=== PATIENT | male | born 1935 | race Caucasian/White ===

== ENCOUNTER 2023-08-25 11:00 | Inpatient (IN) | payer MEDICARE ==
[~2023-08-25] VITALS: Ht 170.2 cm; Wt 65.8 kg
[2023-08-25] MEDS ORDERED: ACET-868 PO ×2 (11:38)
[2023-08-25] MEDS ORDERED: HEPA500039 SQ (11:38)
[2023-08-25] MEDS ORDERED: POLY17PO4 PO (11:38)
[2023-08-25] MEDS ORDERED: AMLO10TA4 PO (11:38)
[2023-08-25] MEDS ORDERED: TRAM50TA2 PO (11:38)
[2023-08-25] MEDS ORDERED: DOCU100C36 PO (11:38)
[2023-08-25] MEDS ORDERED: MAGN400O6 PO (11:38)
[2023-08-25] MEDS ORDERED: ASCO-340 PO (11:38)
[2023-08-25] MEDS ORDERED: ZINC57OI4 TP (11:38)
[2023-08-25] MEDS ORDERED: ZINC220C6 PO (11:38)
[2023-08-25] MEDS ORDERED: MULT-213 PO (11:38)
[2023-08-25] MEDS ORDERED: HYDR-4076 PO (11:38)
[2023-08-25] MEDS ORDERED: CRAN3875 PO (11:38)
[2023-08-25] MEDS ORDERED: FAMO20TA80 GT (11:38)
[2023-08-25] MEDS ORDERED: POTA20TA83 PO (11:38)
[2023-08-25] MEDS ORDERED: MELA3TAB41 PO (11:38)
[2023-08-25] MEDS ORDERED: CLON0.1T PO (11:38)
[2023-08-25] MEDS: IV NS 0.9% 1,000 ML BAG IV ONE ×2 (11:42→11:46)
[2023-08-25 12:14] LABS: BASOPHILS % (AUTO) 0.4 % (0.0-2.0); HEMATOCRIT 35 % (39-51); HEMOGLOBIN 11.3 g/dL (13.5-17.5); LYMPHOCYTES # (AUTO) 0.4 K/uL (0.8-4.8); MEAN CORPUSCULAR HEMOGLOBIN 29 PG (26.0-33.0); MEAN CORPUSCULAR HGB CONC 33 g/dl (31.0-36.0); MEAN CORPUSCULAR VOLUME 89 fL (80-96); MONOCYTES # (AUTO) 0.4 K/uL (0.1-1.30); MONOCYTES % (AUTO) 5.2 % (2.0-12.0); NEUTROPHILS # (AUTO) 6.5 K/uL (1.8-8.9); NEUTROPHILS % (AUTO) 89.4 % (43.0-81.0); PLATELET COUNT (AUTO) 389 K/uL (150-450); RED CELL DISTRIBUTION WIDTH 18.4 % (11.5-15.0); WHITE BLOOD COUNT (AUTO) 7.3 K/uL (4.3-11.0)
[2023-08-25 12:28] LABS: INR 1.1 (0.91-1.10); PARTIAL THROMBOPLASTIN TIME 31.2 SEC (24.3-34.3); PROTHROMBIN TIME 11.6 SECS (9.2-11.1)
[2023-08-25 12:33] LABS: ALANINE AMINOTRANSFERASE 16 U/L (12-78); ALBUMIN 2.4 g/dL (3.4-5.0); ALKALINE PHOSPHATASE 64 U/L (46-116); ASPARTATE AMINOTRANSFERASE 12 U/L (15-37); BILIRUBIN,DIRECT 0.1 mg/dL (0.0-0.2); BILIRUBIN,TOTAL 0.4 mg/dL (0.2-1.0); CALCIUM, SERUM 10.4 mg/dL (8.5-10.1); CARBON DIOXIDE 18 mmol/L (21-32); CHLORIDE 103 mmol/L (98-107); CREATININE 1.9 mg/dL (0.6-1.3); GLUCOSE 150 mg/dL (74-106); LIPASE 11 U/L (16-77); POTASSIUM 3.7 mmol/L (3.5-5.1); SODIUM SERUM 141 mmol/L (136-145); TOTAL PROTEIN, SERUM 7.2 g/dL (6.4-8.2); UREA NITROGEN, BLOOD 62 mg/dL (7-18)
[2023-08-25 12:58] LABS: LACTIC ACID 3.3 mmol/L (0.4-2.0)
[2023-08-25] MEDS ORDERED: Z GUARD REMEDY 4 OZ OINT TP PRN (17:00)
[2023-08-25] MEDS ORDERED: ACETAMINOPHEN 325 MG TABLET PO PRN (17:00)
[2023-08-25] MEDS ORDERED: ONDANSETRON HCL/PF 4 MG/2 ML VIAL IVP PRN (17:00)
[2023-08-25] MEDS ORDERED: LACTULOSE 10 G/15 ML UDC (PYXIS) PO PRN (17:00)
[2023-08-25] MEDS ORDERED: MAGNESIUM HYDROXIDE 30 ML UDC PO PRN (17:00)
[2023-08-25] MEDS ORDERED: IV D5/0.45 NACL 1,000 ML IV PRN (17:00)
[2023-08-25] MEDS: IV LR 1000 ML 1,000 ML IV PRN (17:23)
[2023-08-25] MEDS: DOCUSATE SODIUM 100 MG CAPSULE PO SCH (17:24)
[2023-08-25] MEDS: NA PHOS,M-B/NA PHOS,DI-BA 1 EA ENEMA RC ONE (17:24)
[2023-08-25 20:00] VITALS: BP 94/62; TEMP 97.9; O2SAT 94
[2023-08-25] MEDS ORDERED: SENNOSIDES 8.6 MG TABLET PO PRN (20:00)
[2023-08-25 20:53] LABS: HEMOGLOBIN 9.8 g/dL (13.5-17.5)
[2023-08-25] MEDS: PANTOPRAZOLE 40 MG VIAL IV SCH (21:20)
[2023-08-25] MEDS: SENNOSIDES 8.6 MG TABLET PO SCH (21:20)
[2023-08-25] MEDS: POLYETHYLENE GLYCOL 3350 17 GM POWD.PACK PO SCH (21:21)
[2023-08-25 21:37] LABS: APPEARANCE,URINE CLOUDY (CLEAR); BILIRUBIN,URINE NEGATIVE (NEGATIVE); BLOOD, URINE 1+ Ery/uL (NEGATIVE); COLOR,URINE YELLOW (YELLOW); KETONES,URINE NEGATIVE (NEGATIVE); LEUKOCYTE ESTERASE ,URINE 3+ (NEGATIVE); NITRITE, URINE NEGATIVE (NEGATIVE); PH,URINE 7.5 (5.0-8.0); PROTEIN,URINE 2+ mg/dl (NEGATIVE); UGLUCOSE NEGATIVE (NEGATIVE); UROBILINOGEN,URINE 0.2 EU/dL (0.2)
[2023-08-25 22:33] LABS: ADD URINE CULTURE YES; BACTERIA,URINE 3+ /HPF (None Seen); RBC,URINE 21-50 /HPF (0-2); WBC,URINE 51-80 /HPF (0-3)
[2023-08-25 22:34] LABS: SQUAMOUS EPITHELIAL CELL,UR 0-2 /HPF (None Seen); URINE AMORPHOUS PHOSPHATES Many /HPF (None Seen)
[2023-08-25 23:59] LABS: OCCULT BLOOD STOOL NEGATIVE (NEGATIVE)
[2023-08-26] VITALS: BP 117/61; TEMP 98.1; O2SAT 95
[2023-08-26 04:51] VITALS: BP 121/78; TEMP 98.6; O2SAT 100
[2023-08-26 06:58] LABS: HEMATOCRIT 30 % (39-51); HEMOGLOBIN 9.7 g/dL (13.5-17.5); LYMPHOCYTES # (AUTO) 0.9 K/uL (0.8-4.8); LYMPHOCYTES % (AUTO) 8.8 % (20.0-44.0); MEAN CORPUSCULAR HEMOGLOBIN 29 PG (26.0-33.0); MEAN CORPUSCULAR HGB CONC 33 g/dl (31.0-36.0); MEAN CORPUSCULAR VOLUME 90 fL (80-96); MONOCYTES % (AUTO) 9.3 % (2.0-12.0); NEUTROPHILS # (AUTO) 8.7 K/uL (1.8-8.9); NEUTROPHILS % (AUTO) 81.9 % (43.0-81.0); PLATELET COUNT (AUTO) 298 K/uL (150-450); RED CELL DISTRIBUTION WIDTH 18.4 % (11.5-15.0); WHITE BLOOD COUNT (AUTO) 10.6 K/uL (4.3-11.0)
[2023-08-26 07:41] LABS: IRON, SERUM 10 ug/dl (50-175); TOTAL IRON BINDING CAPACITY 146 ug/dl (250-450)
[2023-08-26 07:42] LABS: CALCIUM, SERUM 9.6 mg/dL (8.5-10.1); CARBON DIOXIDE 14 mmol/L (21-32); CHLORIDE 107 mmol/L (98-107); CREATININE 1.9 mg/dL (0.6-1.3); GLUCOSE 130 mg/dL (74-106); MAGNESIUM 2.4 mg/dL (1.8-2.4); PHOSPHORUS 5.7 mg/dL (2.5-4.9); POTASSIUM 3.6 mmol/L (3.5-5.1); SODIUM SERUM 140 mmol/L (136-145); UREA NITROGEN, BLOOD 71 mg/dL (7-18)
[2023-08-26 07:51] LABS: FERRITIN 488 ng/mL (8-388); THYROID STIMULATING HORMONE 1.052 uIU/mL (0.358-3.74)
[2023-08-26 08:00] VITALS: BP 124/69; TEMP 97.5; O2SAT 98
[2023-08-26] MEDS: IV 1/2NS 1000 ML 1,000 ML IV PRN (08:31)
[2023-08-26] MEDS: ZINC SULFATE 220 MG CAPSULE PO SCH (08:31)
[2023-08-26] MEDS: MULTIVIT W/MINERALS 1 TAB TABLET PO SCH (08:31)
[2023-08-26] MEDS: CEFTRIAXONE 1 G in IV D5W 50 ML IV SCH (09:09)
[2023-08-26 12:00] VITALS: BP 130/75; TEMP 97.8; O2SAT 98
[2023-08-26 16:00] VITALS: BP 119/75; TEMP 98.1; O2SAT 95
[2023-08-26 20:00] VITALS: BP 141/76; TEMP 97.9; O2SAT 95
[2023-08-27] VITALS: BP 127/78; TEMP 98.1; O2SAT 95
[2023-08-27 04:00] VITALS: BP 105/54; TEMP 97.8; O2SAT 95
[2023-08-27 07:19] LABS: BASOPHILS % (AUTO) 0.2 % (0.0-2.0); EOSINOPHILS % (AUTO) 0.1 % (0.0-6.0); HEMATOCRIT 33 % (39-51); HEMOGLOBIN 10.5 g/dL (13.5-17.5); LYMPHOCYTES # (AUTO) 0.3 K/uL (0.8-4.8); LYMPHOCYTES % (AUTO) 6.3 % (20.0-44.0); MEAN CORPUSCULAR HEMOGLOBIN 29 PG (26.0-33.0); MEAN CORPUSCULAR HGB CONC 32 g/dl (31.0-36.0); MEAN CORPUSCULAR VOLUME 91 fL (80-96); MONOCYTES # (AUTO) 0.3 K/uL (0.1-1.30); MONOCYTES % (AUTO) 5.2 % (2.0-12.0); NEUTROPHILS # (AUTO) 4.3 K/uL (1.8-8.9); NEUTROPHILS % (AUTO) 88.2 % (43.0-81.0); PLATELET COUNT (AUTO) 356 K/uL (150-450); RED BLOOD CELL COUNT(AUTO) 3.61 MIL/uL (4.5-6.0); RED CELL DISTRIBUTION WIDTH 18.5 % (11.5-15.0); WHITE BLOOD COUNT (AUTO) 4.9 K/uL (4.3-11.0)
[2023-08-27 08:00] VITALS: BP 102/87; TEMP 98.1; O2SAT 92
[2023-08-27 09:07] LABS: CALCIUM, SERUM 9.6 mg/dL (8.5-10.1); CARBON DIOXIDE 11 mmol/L (21-32); CHLORIDE 108 mmol/L (98-107); CREATININE 2.2 mg/dL (0.6-1.3); GLUCOSE 123 mg/dL (74-106); MAGNESIUM 2.3 mg/dL (1.8-2.4); PHOSPHORUS 4.7 mg/dL (2.5-4.9); POTASSIUM 4.2 mmol/L (3.5-5.1); SODIUM SERUM 140 mmol/L (136-145)
[2023-08-27 09:11] LABS: UREA NITROGEN, BLOOD 83 mg/dL (7-18)
[2023-08-27 15:53] VITALS: BP 110/53; TEMP 97.9; O2SAT 94
[2023-08-27 20:00] VITALS: BP 104/61; TEMP 98.8; O2SAT 94
[2023-08-27] MEDS: MUPIROCIN OINT 2% 22 GM TUBE NS SCH (22:01)
[2023-08-27 23:56] VITALS: BP 110/60; TEMP 98.8; O2SAT 94
[2023-08-28 04:00] VITALS: BP 103/57; TEMP 98.2; O2SAT 95
[2023-08-28 08:42] VITALS: BP 119/65; TEMP 98.1; O2SAT 95
[2023-08-28] MEDS ORDERED: PANT40TA49 PO (09:43)
[2023-08-28 11:04] LABS: ALANINE AMINOTRANSFERASE 12 U/L (12-78); ALBUMIN 1.8 g/dL (3.4-5.0); ALKALINE PHOSPHATASE 50 U/L (46-116); ASPARTATE AMINOTRANSFERASE 15 U/L (15-37); BILIRUBIN,TOTAL 0.3 mg/dL (0.2-1.0); CALCIUM, SERUM 9.1 mg/dL (8.5-10.1); CARBON DIOXIDE 16 mmol/L (21-32); CHLORIDE 113 mmol/L (98-107); CREATININE 1.8 mg/dL (0.6-1.3); GLUCOSE 80 mg/dL (74-106); MAGNESIUM 2.3 mg/dL (1.8-2.4); PHOSPHORUS 4.2 mg/dL (2.5-4.9); POTASSIUM 3.1 mmol/L (3.5-5.1); SODIUM SERUM 144 mmol/L (136-145); TOTAL PROTEIN, SERUM 5.7 g/dL (6.4-8.2); UREA NITROGEN, BLOOD 72 mg/dL (7-18)
[2023-08-28 11:40] LABS: BASOPHILS % (AUTO) 0.2 % (0.0-2.0); EOSINOPHILS % (AUTO) 0.4 % (0.0-6.0); HEMATOCRIT 26 % (39-51); HEMOGLOBIN 8.6 g/dL (13.5-17.5); LYMPHOCYTES # (AUTO) 0.7 K/uL (0.8-4.8); LYMPHOCYTES % (AUTO) 7.6 % (20.0-44.0); MEAN CORPUSCULAR HEMOGLOBIN 30 PG (26.0-33.0); MEAN CORPUSCULAR HGB CONC 33 g/dl (31.0-36.0); MEAN CORPUSCULAR VOLUME 90 fL (80-96); MONOCYTES # (AUTO) 0.6 K/uL (0.1-1.30); MONOCYTES % (AUTO) 7.2 % (2.0-12.0); NEUTROPHILS # (AUTO) 7.5 K/uL (1.8-8.9); NEUTROPHILS % (AUTO) 84.6 % (43.0-81.0); PLATELET COUNT (AUTO) 257 K/uL (150-450); RED CELL DISTRIBUTION WIDTH 18.6 % (11.5-15.0); WHITE BLOOD COUNT (AUTO) 8.9 K/uL (4.3-11.0)
[2023-08-28] MEDS: LIDOCAINE 1%-EPI 1:100,000 20 ML VIAL TP ONE (14:00)
[2023-08-28] MEDS ORDERED: SILVER NITRATE APPLICATOR 1 EA BOX TP SCH (14:00)
[2023-08-28 16:49] VITALS: BP 111/69; TEMP 98.2; O2SAT 94
[2023-08-28] MEDS: PANTOPRAZOLE 40 MG/PACK PACK PO SCH (21:47)
[2023-08-29] VITALS: BP 112/59; TEMP 98.5; O2SAT 94
[2023-08-29 04:50] VITALS: BP 117/61; TEMP 98.2; O2SAT 95
[2023-08-29 06:51] LABS: EOSINOPHILS # (AUTO) 0.2 K/uL (0.0-0.7); EOSINOPHILS % (AUTO) 2.6 % (0.0-6.0); HEMATOCRIT 25 % (39-51); HEMOGLOBIN 8.2 g/dL (13.5-17.5); LYMPHOCYTES # (AUTO) 0.8 K/uL (0.8-4.8); LYMPHOCYTES % (AUTO) 9.2 % (20.0-44.0); MEAN CORPUSCULAR HEMOGLOBIN 29 PG (26.0-33.0); MEAN CORPUSCULAR HGB CONC 33 g/dl (31.0-36.0); MEAN CORPUSCULAR VOLUME 89 fL (80-96); MONOCYTES # (AUTO) 0.8 K/uL (0.1-1.30); NEUTROPHILS # (AUTO) 6.7 K/uL (1.8-8.9); NEUTROPHILS % (AUTO) 79.2 % (43.0-81.0); PLATELET COUNT (AUTO) 248 K/uL (150-450); RED BLOOD CELL COUNT(AUTO) 2.83 MIL/uL (4.5-6.0); RED CELL DISTRIBUTION WIDTH 18.5 % (11.5-15.0); WHITE BLOOD COUNT (AUTO) 8.5 K/uL (4.3-11.0)
[2023-08-29 07:00] VITALS: BP 135/54; TEMP 98.6; O2SAT 98
[2023-08-29 07:35] LABS: ALANINE AMINOTRANSFERASE 14 U/L (12-78); ALBUMIN 1.7 g/dL (3.4-5.0); ALKALINE PHOSPHATASE 54 U/L (46-116); ASPARTATE AMINOTRANSFERASE 12 U/L (15-37); BILIRUBIN,TOTAL 0.2 mg/dL (0.2-1.0); CALCIUM, SERUM 8.9 mg/dL (8.5-10.1); CARBON DIOXIDE 16 mmol/L (21-32); CHLORIDE 112 mmol/L (98-107); CREATININE 1.6 mg/dL (0.6-1.3); GLUCOSE 133 mg/dL (74-106); MAGNESIUM 2.2 mg/dL (1.8-2.4); PHOSPHORUS 3.3 mg/dL (2.5-4.9); SODIUM SERUM 142 mmol/L (136-145); TOTAL PROTEIN, SERUM 5.6 g/dL (6.4-8.2); UREA NITROGEN, BLOOD 56 mg/dL (7-18)
[2023-08-29] MEDS ORDERED: NEPRO VAN 237 ML CAN PO PRN (11:00)
[2023-08-29] MEDS ORDERED: PRED50TA PO (11:27)
[2023-08-29 11:42] VITALS: BP 126/56; TEMP 98.4; O2SAT 97
[2023-08-29] MEDS: POTASSIUM CHLORIDE 20 MEQ POWDER PACKET PO ONE (11:55)
[2023-08-29 15:53] VITALS: BP 113/54; TEMP 98.6; O2SAT 95
[2023-08-29] MEDS ORDERED: PROSOURCE / PROSTAT (PYXIS) 30 ML UDC PO SCH (17:00)
== END 2023-08-29 17:52 | DRG 987 ==
LOC: ER 11:20 → TELE 15:27
PROVIDERS: ADMIT Nurse Practitioner Family; ATTEND Internal Medicine
PROC: 02HV33Z Insertion of Infusion Device into Superior Vena Cava, Percutaneous Approach (ICD-10-PCS; principal; 2023-08-25)
PROC: B548ZZA Ultrasonography of Superior Vena Cava, Guidance (ICD-10-PCS; 2023-08-25)
PROC: 0DB68ZX Excision of Stomach, Via Natural or Artificial Opening Endoscopic, Diagnostic (ICD-10-PCS; 2023-08-27)
PROC: 0KB Muscles, Excision (ICD-10-PCS; 2023-08-29)
DX: K25.4 Chronic or unspecified gastric ulcer with hemorrhage (principal); G93.41 Metabolic encephalopathy; R53.2 Functional quadriplegia; N17.0 Acute kidney failure with tubular necrosis; D62 Acute posthemorrhagic anemia; E87.20 Acidosis, unspecified; I12.9 Hypertensive chronic kidney disease with stage 1 through stage 4 chronic kidney disease, or unspecified chronic kidney disease; N18.30 Chronic kidney disease, stage 3 unspecified; K20.90 Esophagitis, unspecified without bleeding; K29.70 Gastritis, unspecified, without bleeding; Z66 Do not resuscitate; Z79.01 Long term (current) use of anticoagulants; Z79.899 Other long term (current) drug therapy; D50.9 Iron deficiency anemia, unspecified; F03.90 Unspecified dementia, unspecified severity, without behavioral disturbance, psychotic disturbance, mood disturbance, and anxiety; N13.9 Obstructive and reflux uropathy, unspecified; M48.00 Spinal stenosis, site unspecified; K44.9 Diaphragmatic hernia without obstruction or gangrene; D63.8 Anemia in other chronic diseases classified elsewhere; M1A.9XX1 Chronic gout, unspecified, with tophus (tophi); L57.0 Actinic keratosis; L82.1 Other seborrheic keratosis; L89.611 Pressure ulcer of right heel, stage 1; L89.629 Pressure ulcer of left heel, unspecified stage; M24.572 Contracture, left ankle; M24.571 Contracture, right ankle; R62.7 Adult failure to thrive; K59.00 Constipation, unspecified
CPT/HCPCS: 31720; 36415; 71045-TC; 73200-TC; 76770-TC; 80048-TC; 80053-TC; 80076-TC; 81001; 82010-TC; 82272-TC; 82607-TC; 82728-TC; 83540-TC; 83605-TC; 83690-TC; 83735-TC; 84100-TC; 84443-TC; 84484-TC; 85025-TC; 85027-TC; 85730-TC; 86850-TC; 87081-TC; 87086-TC; 94799-TC; A4223; A6403; C9113; G0378; J0696; J2704; J3490; J7030; J7060; J7120